=== PATIENT | female | born 1990 | race Caucasian/White ===

== ENCOUNTER 2017-09-14 06:00 | Day surgery (SDC) | payer OTHER | END 2017-09-14 08:55 | disposition home or self-care (01) | LOC: AMB-ENDOS 06:00 | DX: D13.1 Benign neoplasm of stomach (principal); K44.9 Diaphragmatic hernia without obstruction or gangrene; K29.70 Gastritis, unspecified, without bleeding ==

== ENCOUNTER → 2017-09-21 08:09 | Outpatient (CLI) | payer OTHER | END | disposition home or self-care (01) | LOC: LAB 07:32 | DX: E66.01 Morbid (severe) obesity due to excess calories (principal); R10.13 Epigastric pain; R73.09 Other abnormal glucose; E56.8 Deficiency of other vitamins; R00.0 Tachycardia, unspecified ==

== ENCOUNTER 2017-09-21 13:59 | Outpatient (CLI) | payer OTHER | END 2017-09-21 14:07 | disposition home or self-care (01) | LOC: RAD 13:59 | DX: R10.31 Right lower quadrant pain (principal); E66.01 Morbid (severe) obesity due to excess calories; R00.0 Tachycardia, unspecified ==

== ENCOUNTER → 2017-09-21 | Outpatient (CLI) | payer OTHER | END | disposition home or self-care (01) | LOC: NUCLEAR 09:00 | DX: R00.0 Tachycardia, unspecified (principal); E66.01 Morbid (severe) obesity due to excess calories ==

== ENCOUNTER 2019-02-28 08:56 | Outpatient (CLI) | payer OTHER | END 2019-02-28 09:01 | disposition home or self-care (01) | LOC: SONOGRAMA 08:56 | DX: R10.13 Epigastric pain (principal); K80.10 Calculus of gallbladder with chronic cholecystitis without obstruction ==

== ENCOUNTER 2019-04-03 06:00 | Day surgery (SDC) | payer OTHER ==
[2019-04-03] MEDS ORDERED: PERCOCET 5-3251 EACH PO (11:06)
[2019-04-03] MEDS ORDERED: POLY119PG PO (11:07)
== END 2019-04-03 15:00 | disposition home or self-care (01) ==
LOC: CIR.AMB 06:00 → ADM 10:45 → CIR.AMB 15:00
DX: K80.10 Calculus of gallbladder with chronic cholecystitis without obstruction (principal); K42.9 Umbilical hernia without obstruction or gangrene; K43.2 Incisional hernia without obstruction or gangrene

== ENCOUNTER 2022-04-27 12:36 | Outpatient (CLI) | payer OTHER ==
[~2022-04-27 12:36] MED LIST: PERCOCET 5-3251 EACH PO; POLY119PG PO
== END 2022-04-27 12:40 | disposition home or self-care (01) ==
LOC: RAD 12:36
PROVIDERS: ATTEND Specialist
DX: M70.61 Trochanteric bursitis, right hip (principal); M70.62 Trochanteric bursitis, left hip; M35.01 Sjogren syndrome with keratoconjunctivitis; J01.90 Acute sinusitis, unspecified

== ENCOUNTER 2022-05-04 09:23 | Outpatient (CLI) | payer OTHER | END 2022-05-04 10:12 | disposition home or self-care (01) | LOC: RAD 09:23 | PROVIDERS: ATTEND Specialist | DX: M70.62 Trochanteric bursitis, left hip (principal); H04.02 Chronic dacryoadenitis ==

== ENCOUNTER 2023-05-22 03:37 | Emergency (ER) | payer OTHER ==
[~2023-05-22] VITALS: Ht 165.1 cm; Wt 81.6 kg
[2023-05-22] MEDS ORDERED: LEXAPRO20 MG (03:49)
[2023-05-22] MEDS ORDERED: PROMETHAZINE HCL 50 MG/ML AMPUL IM STA (04:36)
[2023-05-22] MEDS ORDERED: HYOSCYAMINE SULFATE 0.125 MG TAB.SUBL SL STA (04:36)
[2023-05-22] MEDS ORDERED: FAMOTIDINE/PF 20 MG/2 ML VIAL IV PUSH STA (04:37)
[2023-05-22] MEDS ORDERED: LACTOBACILLUS ACIDOPHILUS 1 CAP CAP PO STA (04:37)
[2023-05-22] MEDS ORDERED: MEPERIDINE HCL/PF 50 MG/ML VIAL IM STA (04:40)
[2023-05-22] MEDS ORDERED: 0.9 % SODIUM CHLORIDE 1,000 ML IV ONE (04:45)
[2023-05-22 05:11] LABS: HEMATOCRIT 38.3 % (36.0-45.00); HEMOGLOBIN 13.6 g/dL (12.0-15.00); MEAN CELL VOLUME 94.9 fL (80.00-100.00); MEAN CORPUSCULAR HEMOGLOBIN 33.6 pg (27.00-32.0); MEAN CORPUSCULAR HGB CONC 35.5 g/dl (32.0-36.0); PLATELET COUNT 276 K/uL (150-450); RED BLOOD COUNT 4.04 M/uL (4.00-6.00); RED CELL DISTRIBUTION WIDTH 12.8 % (11.5-14.5)
[2023-05-22 05:39] LABS: ALBUMIN 3.7 gm/dL (3.4-5.0); BILIRUBIN TOTAL 0.64 mg/dL (0.3-1.2); CALCIUM 8.9 mg/dL (8.5-10.1); CREATININE SERUM 0.74 mg/dL (0.55-1.02); GFR 90.38; POTASSIUM 3.58 mEq/L (3.5-5.1); TOTAL PROTEIN 7.7 gm/dL (6.4-8.2)
[2023-05-22 10:18] LABS: PH,URINE 7.5 (5.0-8.0); URINE APPEARANCE Cloudy; URINE BILIRRUBIN Negative (NEGATIVE); URINE BLOOD Negative; URINE COLOR Yellow; URINE LEUKOCYTE Negative; URINE NITRATE Negative; URINE PROTEIN Trace (NEGATIVE)
[2023-05-22 10:19] LABS: URINE BACTERIA 1521.9 uL (0.0-1933); URINE EPITHELIAL CELLS 26.2 uL (0.0-38.8); URINE RBC 39.5 uL (0.0-20.8)
[2023-05-22 10:43] LABS: URINE GLUCOSE 100 MG/DL (NEGATIVE)
[2023-05-22] MEDS ORDERED: ONDANSETRON ODT8 MG PO (11:57)
[2023-05-22] MEDS ORDERED: PEPCID AC20 MG PO (11:57)
[2023-05-22] MEDS ORDERED: KETOROLAC TROMETHAMINE 30 MG VIAL IV ONE ×2 (12:15→13:30)
== END 2023-05-22 12:58 | disposition home or self-care (01) ==
LOC: ER 03:37
PROVIDERS: General Practice
DX: R11.10 Vomiting, unspecified (principal); R19.7 Diarrhea, unspecified; R10.9 Unspecified abdominal pain; Z91.013 Allergy to seafood